=== PATIENT | female | born 1960 | race Caucasian/White ===

== ENCOUNTER 2022-11-17 11:03 | Emergency (ER) | payer OTHER, SELFPAY ==
--- NOTE | ~2022-11-17 | XR_ITS ---
EXAMINATION: XR ankle RT min 3V INDICATION: Right ankle pain TECHNIQUE: Four views of the right ankle are obtained. COMPARISON: None available FINDINGS: Bone alignment is normal. There is ankle soft tissue swelling. Linear heterotopic ossificat ion is seen projecting into the dorsal lateral aspect of the calcaneus. There is also subtle linear h eterotopic ossification projecting distal to the lateral malleolus. IMPRESSION: 1. Possible avulsion injuries involving the dorsolateral aspect of the calcaneus and distal aspect of the lateral malleolus. Reviewed, dictated and finalized at location A. IMPRESSION: 1. Possible avulsion injuries involving the dorsolateral aspect of the calcaneu s and distal aspect of the lateral malleolus.
[2022-11-17 11:10] VITALS: BP 112/68; PULSE 80; RESP 14; TEMP 37.4; O2SAT 96
--- NOTE | 2022-11-17 11:19 | ED.LOWEXIN ---
HPI - Extremity Injury (Lower) General Chief Complaint: Extremity Injury, Lower Stated Complaint: Right Ankle injury History of Present Illness HPI Narrative: PATIENT PRESENTS WITH RIGHT ANKLE PAIN. PATIENT REPORTS SITTING ON TOIET AND WHEN SHE WENT TO GET UP SHE ROLLED HER RIGHT ANKLE. pAIN WITH AMUBULATION NO DEFORMITY NO OPEN AREAS NO BRUISING SLIGHT SWELLING TO OUTER ANKLE. Related Data Home Medications Medication Instructions Recorded Confirmed albuterol sulfate 90 mcg/actuation inhalation 11/17/22 aerosol inhaler alprazolam 1 mg tablet mg 11/17/22 budesonide-formoterol HFA 160 inhalation 11/17/22 mcg-4.5 mcg/actuation aerosol inhaler (Symbicort) ezetimibe 10 mg tablet mg 11/17/22 fluticasone propionate 50 intranasal 11/17/22 mcg/actuation nasal spray,suspension ipratropium bromide 17 inhalation 11/17/22 mcg/actuation HFA aerosol inhaler (Atrovent HFA) montelukast 10 mg tablet mg 11/17/22 Allergies Allergy/AdvReac Type Severity Reaction Status Date / Time codeine Allergy Unknown ITCHING Verified 07/30/14 06:59 Sulfa (Sulfonamide Allergy Unknown Verified 06/14/14 13:04 Antibiotics) venom-wasp Allergy Unknown UNKNOWN Unverified 07/30/14 06:59 Review of Systems Review of Systems: CONSTITUTIONAL: DENIES FEVER, CHILLS, OR SWEATS. EYES: DENIES VISUAL CHANGES, REDNESS, OR DISCHARGE. ENT: DENIES RHINORRHEA, CONGESTION, SORE THROAT, OR OTALGIA. CARDIOVASCULAR: DENIES CHEST PAIN, PALPITATIONS, OR EDEMA. RESPIRATORY: DENIES COUGH OR DYSPNEA. GASTROINTESTINAL: DENIES ABDOMINAL PAIN, NAUSEA, VOMITING, OR DIARRHEA. GENITOURINARY: DENIES DYSURIA OR HEMATURIA. SKIN: DENIES RASH OR ITCHING. MUSCULOSKELETAL: DENIES BACK PAIN, JOINT PAIN, OR MYALGIA. NEUROLOGIC: DENIES HEADACHE, NUMBNESS, OR WEAKNESS. PSYCHIATRIC: DENIES ANXIETY OR DEPRESSION. [facility] Family History Family History (Updated 06/14/14 @ 13:07 by DOCTOR UNKNOWN) Mother Family history of mental disorder Family history of type 2 diabetes mellitus Family history of heart disease in male family member before age 55 Father Family history of chronic obstructive pulmonary disease Carcinoma of colon Family history of type 2 diabetes mellitus Family history of heart disease in male family member before age 55 Sibling Family history of type 2 diabetes mellitus Other Family history of arthritis Family history of osteoporosis Social History Social History Smoking status: Heavy tobacco smoker Second hand tobacco smoke exposure: Yes Alcohol intake: never Comments AT TIME OF SIGNATURE, AGREE WITH NURSING PAST MEDICAL, SURGICAL, SOCIAL AND FAMILY HISTORY. THERE IS NO RELEVANT FAMILY HISTORY PERTINENT TO THE PRESENTING COMPLAINT Exam Narrative: GENERAL: WELL-APPEARING, WELL-NOURISHED, AND IN NO ACUTE DISTRESS. HEAD: NORMOCEPHALIC, ATRAUMATIC. EYES: PERRLA AND EOMI. ENT: NARES CLEAR, NO RHINORRHEA OR EPISTAXIS. MUCOUS MEMBRANES MOIST. NECK: SUPPLE. CHEST: CLEAR TO AUSCULTATION. NO RESPIRATORY DISTRESS. HEART: REGULAR RATE AND RHYTHM. NO MURMUR HEARD. NORMAL PERIPHERAL PULSES. ABDOMEN: SOFT, NONTENDER, NONDISTENDED, NORMAL ACTIVE BOWEL SOUNDS. EXTREMITIES: NORMAL RANGE OF MOTION. NO EDEMA.SKIN INTACT. NORMAL DP PULSE, NORMAL CAP REFILL. NORMAL SENSATION. PAIN TO LATERAL SIDE OF RIGHT ANKLE SKIN: WARM, DRY, NO RASH. NEURO: NO FOCAL DEFICITS. ALERT AND ORIENTED X3. MANDY COMA SCALE EYE OPENING: SPONTANEOUS 4 MANDY COMA SCALE MOTOR: OBEYS COMMANDS 6 MANDY COMA SCALE VERBAL: ORIENTED 5 MANDY COMA SCALE TOTAL 15 Course Course Level of Care: Express Care Visit Vital Signs Vital signs: Vital Signs Temperature 37.4 C 11/17/22 11:10 Pulse Rate 80 11/17/22 11:10 Respiratory Rate 14 11/17/22 11:10 Blood Pressure 112/68 11/17/22 11:10 Pulse Oximetry 96 11/17/22 11:10 Oxygen Delivery Room Air 11/17/22 11:10 Temperature 37.4 C 11/17/22 11:10 Pulse Rate 80 11/17/22 11
== END 2022-11-17 11:56 | disposition home or self-care (01) ==
PROVIDERS: Emergency Provider Nurse Practitioner Family; PCP Family Medicine
DX: S93.401A Sprain of unspecified ligament of right ankle, initial encounter (principal); S96.911A Strain of unspecified muscle and tendon at ankle and foot level, right foot, initial encounter; S82.891A Other fracture of right lower leg, initial encounter for closed fracture; X50.9XXA Other and unspecified overexertion or strenuous movements or postures, initial encounter
CPT/HCPCS: 73610; 99204; G0463